=== PATIENT | male | born 1975 | race Two or more races ===

== ENCOUNTER 2024-06-17 09:20 | Outpatient (AMB) | payer MEDICAID, SELFPAY ==
--- NOTE | 2024-06-17 09:20 | ACNOTE_ITS ---
Vital Signs 06/17/24 09:31 Height 1.52 m Height Method Stated Weight 94.404 kg Weight Measurement Method Standing Scale BMI 40.8 BP 112/78 Blood Pressure Source Automatic Cuff Blood Pressure Location Left Upper Arm Position Sitting Respiration 19 Pulse 69 Pulse Source Monitor Temp 97.9 F Temp Source Oral Pulse Oximetry (%) 96 Oxygen Delivery Method Room Air Allergies/Meds Allergies & Medications Allergies No Known Allergies Allergy (Verified 06/24/24 15:20) Medication Reconciliation terbinafine HCl 1 % topical cream (Antifungal (terbinafine)) 1 applic topical BID #30 grams 08/08/23 [Rx Confirmed 02/01/24] clotrimazole 1 % topical cream 1 applic topical BID #15 grams 09/01/23 [Rx Confirmed 02/01/24] flash glucose scanning reader ([employer] Glenna 2 [place]) #1 ea 01/11/24 [Rx Con firmed 02/01/24] terbinafine HCl 1 % topical cream (Antifungal (terbinafine)) 1 applic topical BID 3 months #30 grams 02/01/24 [Rx] flash glucose sensor ([employer] Glenna 2 Sensor kit) #2 ea 03/18/24 [Rx Confirmed 03/18/24] atorvastatin 40 mg tablet 40 mg PO QHS #30 tabs 06/17/24 [Rx Confirmed 06/17/24] blood sugar diagnostic (Accu-Chek Guide test strips) #100 ea 06/17/24 [Rx Confirmed 06/17/24] blood-glucose meter (Accu-Chek Guide Me Glucose Meter) #1 ea 06/17/24 [Rx Confirmed 06/17/24] fenofibrate 150 mg capsule 150 mg PO QDAY 3 months #90 caps 06/17/24 [Rx Confirmed 06/17/24] lancets (Accu-Chek Fastclix Lancet Drum) #200 ea 06/17/24 [Rx Confirmed 06/17/24] metformin 500 mg tablet 500 mg PO BID 1 month #60 tabs 06/17/24 [Rx Confirmed 06/17/24] semaglutide 3 mg tablet (Rybelsus) 3 mg PO QDAY 30 days #30 tabs 06/17/24 [Rx Confirmed 06/17/24] dextromethorphan-guaifenesin 15 mg-200 mg/5 mL oral liquid 5 ml PO QID PRN cough #118.3 mL 06/24/24 [Rx Confirmed 06/24/24] MA Intake Visit Data Collection New Patient or Established: Established Patient (seen at [facility] within 3 years) Seen by Clinical Staff ONLY (RN/BALA): No Pain Present Currently: No Pain scale:: 0 Pain Scale Used: Patterson-Marr/Numerical PCP or OBGYN visit in last 3 months: Yes Do You Feel Safe at Home: Yes Authorities Contacted: N/A Smoking Status Smoking Status: Former smoker Immunization / Flu Flu Vaccine in the Last 12 Months: No Flu Vaccine Exclusion Criteria: No Exclusion Criteria Past Medical History Past Medical History NEUROLOGIC: Negative Neurological Disorders CARDIAC: Negative Cardiac Disorders or Congestive Heart Failure RESPIRATORY: Negative Chronic Obstructive Pulmonary Disease (COPD) GASTROINTESTINAL: Negative Gastrointestinal Disorders GENITOURINARY: Negative Genitourinary Disorders or Renal Disease ENDOCRINE: Positive Endocrine Disorders and Diabetes Mellitus Type 2; Negative Diabetes Mellitus Type 1 HEMATOLOGIC: Negative Blood Disorders OTHER HISTORY: Positive Chicken Pox; Negative Autoimmune Disease or Cancer Family History FAMILY HISTORY: Negative Family Psychiatric Problems, Family Respiratory Disorders, Family Cardiac Disorders, Family Gastrointestinal Problems, Family Cancer, Family Surgery or Family Anesthesia Reaction Social History SMOKING STATUS: Smoking status: Former smoker ALCOHOL: Alcohol Intake: Never HOUSING: Housing: Apartment LIVES WITH: Lives With: Significant Other Patient Portal Questionaires PHQ-9 PHQ-2 Over the last 2 weeks, how often have you been bothered by any of the following problems? 1. Little interest or pleasure in doing things: not at all PHQ-9 8. Moving or speaking so slowly that other people could have noticed? - Or the opposite - being so fidgety or restless that you have been moving around a lot more than usual: not at all Source: Developed by Drs. Con Aguilar, Krystal Isaacs, Chico Kenny and colleagues, with an educational mahogany from [employer]. Social History Living Situation History Housing: Apartment Housing Other:: Patient resides at home with significant other and child. Tobacco History Smoking Status: Former smoker Alcohol History Alcohol Intake: Never Domestic Abuse History Do You Feel Safe at Home: Yes Review of Systems Report any current symptoms Only answer those that you have currently: Past Medical History Past Medical History Have you ever been diagnosed with any of the following: Cardiology Problems Congestive Heart Failure: No Respiratory Problems Chronic Obstructive Pulmonary Disease (COPD): No Genital/Urinary Problems Renal Disease: No Endocrine Problems Diabetes Mellitus Type 1: No Diabetes Mellitus Type 2: Yes Other Problems Autoimmune Disease: No Chicken Pox: Yes Cancer: No History of Present Illness HPI Narrative 48-year-old man with past medical history of hyperlipidemia, diabetes mellitus type 2 [id number] who came to [facility] for follow-up. Patient stated that he has been feeling well that he is taking his medications as prescribed but today he complains of bilateral foot dryness and itchiness at the level of the heel, plantar area and interdigital area. Denied dizziness, chest pain, palpitations, headache, blurry vision or any other associated symptoms different than mentioned above. 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 Upon my assessment most likely symptoms of patient foot dryness and itchiness are most likely consistent with athlete's foot for which terbinafine 250 mg p.o. daily for 3 months was prescribed as well as terbinafine cream 1% to apply on affected area 3 times per day for at least 1 month. Patient stated that still has medications and not require any refills at this time. Patient was counseled about healthy lifestyle modifications consistent with healthy diet with low and consistent carbs as well as low-fat foods and at least 30 minutes of exercise daily to decrease cardiovascular risk and improve insulin resistance. Follow-up in 2 weeks with labs A1c lipid panel and CMP. 02/01/2024: 48-year-old man with past medical history of hyperlipidemia, diabetes mellitus type 2 [id number] who came today to the [facility] for follow-up with labs. Patient stated that has been feeling well otherwise he said that was not able to do labs for this visit due to work. 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 He stated that continued to present to dryness and itchiness of bilateral lower extremities at the level of the foot and that even has become worse ordered at that he denied any other active complaints like chest pain, palpitations, dizziness, hypoglycemia's or hyperglycemia and that he regularly check his blood glucose at home and has been between 80?120s. We will refill terbinafine medications for athlete's foot and we will follow-up via telehealth with lab results. 03/18/2024: 48-year-old man with past medical history of hyperlipidemia, diabetes mellitus type 2 [id number] who came today to the [facility] for follow-up with labs. Patient stated that lately he has been presenting dizziness most likely when he eats otherwise he denied any other complaints at this moment. Patient stated that at home checks his glucose FSG around 150-130s. Today at the office FSG 213 4 labs showed glucose 117, A1c 7.2=> 7.4, creatinine within normal limits, lipid panel triglycerides 477, HDL 41, LDL 112, total cholesterol 236, we counseled the patient about healthy lifestyle modification and low-carb diet and importance of medication adherence for diabetes we will add gemfibrozil 175 mg p.o. daily and continue atorvastatin 40 mg p.o. at night as well as week at Rybelsus treatment was p.o. daily to achieve better glycemic control and follow-up with labs in 3 to 6 months. 06/17/2024: 48-year-old man with past medical history of history of hyperlipidemia, diabetes mellitus type 2 [id number] who came today to the [facility] for follow-up. Patient denied any acute complaints at this moment he stated he been feeling well only stated that apparently 2 weeks ago was presenting some reflux symptoms and gastritis. Denied checking his blood glucose at home today though he is not have a glucometer and he stated that he forgot to take labs for today. Medications were refilled atorvastatin, Rybelsus, metformin and Accu-Chek glucometer was ordered as well as omeprazole 40 mg p.o. daily for 3 weeks. Follow-up via telehealth with lab results Review of Systems Review of Systems Systems Reviewed: All systems reviewed, normal except as documented Objective/Exam Narrative Physical exam: General: No acute distress, well appearing, alert, interactive. HEENT: NC/AT, PERRL, EOMI, Good conjugate gaze, moist mucous membranes, oropharynx clear. Neck: Supple, No masses, No adenopathy, carotid pulse 2+ bilaterally without bruits, No JVD, normal range of motion. Chest: Symmetrical, atraumatic, and with equal expansion , Nontender on palpation no deformity and no crepitus. CVS: S1 and S2 present, Regular rate and rhythm, No murmurs, rubs or gallops perceived during auscultation. Lungs: Normal respiratory effort, CTAB, no wheezing, rhonchi or rales perceived during auscultation, No intercostal or subcostal retraction. Abdomen : Soft, no tenderness to palpation, no guarding ,no rebound, +BS, no organomegaly. Extremities: No edema, warm well perfused, normal tone and ROM, strength and sensation intact, cap refill less than 2, +2 dp equal bilaterally, able to move all 4 extremities spontaneously. Skin: desquamation on heel area as well interdigital area, bilateral toes onychomycosis Neuro: AOx4,reflex symmetric and sensation normal, no focal neurologic deficits noted, GCS 15 Psych: Appropriate mood and affect. Assessment & Plan Diagnosis / Problem List (1) Diabetes mellitus type 2, noninsulin dependent: Status: Acute Assessment & Plan: Patient A1c last 7.4 we encouraged the patient to do healthy lifestyle modification, at least 150 minutes of exercise per week and have low-carb diet. A1c, lipid panel CBC CMP and microalbuminuria protein creatinine ratio was ordered Plan: Continue Rybelsus 3 mg p.o. daily and continue metformin 500 mg p.o. twice daily and follow-up with labs (2) Hyperlipidemia: Status: Acute Qualifiers: Hyperlipidemia type: mixed hyperlipidemia Qualified Code(s): E78.2 - Mixed hyperlipidemia Assessment & Plan: Patient has past medical history of mixed hyperlipidemia last total cholesterol increased from 204 to 236, triglycerides increased from 130 to 477, LDL and HDL remain stable continue fenofibrate 150 mg p.o. daily and continue atorvastatin mg 40 p.o. q. night Plan: Continue fenofibrate 150 open p.o. daily and continue atorvastatin 40 mg p.o. q. night follow-up with labs (3) GERD (gastroesophageal reflux disease): Status: Acute Qualifiers: Esophagitis presence: esophagitis presence not specified Qualified Code(s): K21.9 - Gastro-esophageal reflux disease without esophagitis Assessment & Plan: Patient endorse that since last 2 weeks has been presenting some burning sensation on the epigastric area as well as sensation of acid in his throat. Plan: Omeprazole 40 mg p.o. daily for 4 weeks was ordered recommendation for treatment to avoid spicy foods, sweets, coffee and processed food Orders: Orders Ambulatory Hemoglobin A1C 06/17/24 E11.9 - Type 2 diabetes mellitus without complications Microalbumin, Ur Rnd w Creat 06/17/24 E11.9 - Type 2 diabetes mellitus without complications Additional Assessment Patient discussed with my attending Dr Jeff Ortega MD PGY-3 Disclaimer: Despite multiple revisions, due to the dictation software being used, the document bellow may not be free of grammatical errors including phonetic/typographic errors. However, this does not deter from our commitment to providing health care in the patient's best interest in mind. Attending note: I, Hola Aguilar MD, attest that I was physically present for the zayas portions of the service and evaluated the patient with the resident and I reviewed and discussed the case with the resident and agree with the resident's findings and plans of care as documented above. Follow-up visit. Diabetes self- care reviewed including diet, exercise, footcare, eye care. No low available today for review. Medications renewed today, also order for glucometer. Patient reporting some reflux symptoms, will order PPI for 3 weeks. Follow-up with telehealth visit once lab results available for review. Hola Aguilar MD Physician Billing Established Patient Established Patient: E/M Level 3-CPT 99616 Office Procedures [facility] Level of Care Nursing/Assessment Patient Status: Established Patient Nursing Assessment/Reassessment: Medication Reconciliation, Update PMH in EMR and Vital Signs Coordination of Care: Complex Care and Chronic Disease 1-5, Consent,records obtained, informed consent, Lab and Imaging orders and Staff clarify orders Established Patient Charge Established Patient Point Assignment: 85 Established Patient Point Charge: Level 3 (62-115)
[2024-06-17 09:31] VITALS: BP 112/78; PULSE 69; RESP 19; TEMP 36.6; O2SAT 96; BMI 40.8
== END 2024-06-17 09:51 | disposition home or self-care (01) ==
LOC: HODAHC 09:20
PROVIDERS: PCP Student in an Organized Health Care Education/Training Program; Referring Provider Student in an Organized Health Care Education/Training Program; Supervising Provider Internal Medicine; Visit Provider Student in an Organized Health Care Education/Training Program
DX: E11.9 Type 2 diabetes mellitus without complications (principal); K21.9 Gastro-esophageal reflux disease without esophagitis; E78.2 Mixed hyperlipidemia; Z79.84 Long term (current) use of oral hypoglycemic drugs
CPT/HCPCS: 99213; G0463

== ENCOUNTER 2024-06-24 15:20 | Outpatient (AMB) | payer MEDICAID, SELFPAY ==
--- NOTE | 2024-06-24 15:19 | PD.RESCLINIC ---
Allergies/Meds Allergies & Medications Allergies No Known Allergies Allergy (Verified 06/24/24 15:20) Medication Reconciliation terbinafine HCl 1 % topical cream (Antifungal (terbinafine)) 1 applic topical BID #30 grams 08/08/23 [Rx Confirmed 02/01/24] clotrimazole 1 % topical cream 1 applic topical BID #15 grams 09/01/23 [Rx Confirmed 02/01/24] flash glucose scanning reader (OTI [employer] Glenna 2 [place]) #1 ea 01/11/24 [Rx Confirmed 02/01/24] terbinafine HCl 1 % topical cream (Antifungal (terbinafine)) 1 applic topical BID 3 months #30 grams 02/01/24 [Rx] flash glucose sensor ([employer] Glenna 2 Sensor kit) #2 ea 03/18/24 [Rx Confirmed 03/18/24] atorvastatin 40 mg tablet 40 mg PO QHS #30 tabs 06/17/24 [Rx Confirmed 06/17/24] blood sugar diagnostic (Accu-Chek Guide test strips) #100 ea 06/17/24 [Rx Confirmed 06/17/24] blood-glucose meter (Accu-Chek Guide Me Glucose Meter) #1 ea 06/17/24 [Rx Confirmed 06/17/24] fenofibrate 150 mg capsule 150 mg PO QDAY 3 months #90 caps 06/17/24 [Rx Confirmed 06/17/24] lancets (Accu-Chek Fastclix Lancet Drum) #200 ea 06/17/24 [Rx Confirmed 06/17/24] metformin 500 mg tablet 500 mg PO BID 1 month #60 tabs 06/17/24 [Rx Confirmed 06/17/24] semaglutide 3 mg tablet (Rybelsus) 3 mg PO QDAY 30 days #30 tabs 06/17/24 [Rx Confirmed 06/17/24] dextromethorphan-guaifenesin 15 mg-200 mg/5 mL oral liquid 5 ml PO QID PRN cough #118.3 mL 06/24/24 [Rx Confirmed 06/24/24] MA Intake Visit Data Collection New Patient or Established: Established Patient (seen at [facility] within 3 years) Seen by Clinical Staff ONLY (RN/MA): No Pain Present Currently: No Pain scale:: 0 Pain Scale Used: Patterson-Marr/Numerical PCP or OBGYN visit in last 3 months: Yes Do You Feel Safe at Home: Yes Authorities Contacted: N/A Smoking Status Smoking Status: Former smoker For Televisit only Telemed Video/Phone Visit: Yes Verbal consent obtained for Telemed visit?: Yes Verbal Consent witness name: ISAMAR Telemed Video/Phone visit w/Clinical Staff: 21-30 min Immunization / Flu Flu Vaccine in the Last 12 Months: No Flu Vaccine Exclusion Criteria: No Exclusion Criteria Past Medical History Past Medical History NEUROLOGIC: Negative Neurological Disorders CARDIAC: Negative Cardiac Disorders or Congestive Heart Failure RESPIRATORY: Negative Chronic Obstructive Pulmonary Disease (COPD) GASTROINTESTINAL: Negative Gastrointestinal Disorders GENITOURINARY: Negative Genitourinary Disorders or Renal Disease ENDOCRINE: Positive Endocrine Disorders and Diabetes Mellitus Type 2; Negative Diabetes Mellitus Type 1 HEMATOLOGIC: Negative Blood Disorders OTHER HISTORY: Positive Chicken Pox; Negative Autoimmune Disease or Cancer Family History FAMILY HISTORY: Negative Family Psychiatric Problems, Family Respiratory Disorders, Family Cardiac Disorders, Family Gastrointestinal Problems, Family Cancer, Family Surgery or Family Anesthesia Reaction Social History SMOKING STATUS: Smoking status: Former smoker ALCOHOL: Alcohol Intake: Never HOUSING: Housing: Apartment LIVES WITH: Lives With: Significant Other Patient Portal Questionaires PHQ-9 PHQ-2 Over the last 2 weeks, how often have you been bothered by any of the following problems? 1. Little interest or pleasure in doing things: not at all PHQ-9 8. Moving or speaking so slowly that other people could have noticed? - Or the opposite - being so fidgety or restless that you have been moving around a lot more than usual: not at all Source: Developed by Drs. Con Aguilar, Krystal Isaacs, Chico Kenny and colleagues, with an educational mahogany from [employer]. Social History Living Situation History Housing: Apartment Housing Other:: Patient resides at home with significant other and child. Tobacco History Smoking Status: Former smoker Alcohol History Alcohol Intake: Never Domestic Abuse History Do You Feel Safe at Home: Yes Review of Systems Report any current symptoms Only answer those that you have currently: Past Medical History Past Medical History Have you ever been diagnosed with any of the following: Cardiology Problems Congestive Heart Failure: No Respiratory Problems Chronic Obstructive Pulmonary Disease (COPD): No Genital/Urinary Problems Renal Disease: No Endocrine Problems Diabetes Mellitus Type 1: No Diabetes Mellitus Type 2: Yes Other Problems Autoimmune Disease: No Chicken Pox: Yes Cancer: No History of Present Illness HPI Narrative 48-year-old man with past medical history of hyperlipidemia, diabetes mellitus type 2 [id number] who came to [facility] for follow-up. Patient stated that he has been feeling well that he is taking his medications as prescribed but today he complains of bilateral foot dryness and itchiness at the level of the heel, plantar area and interdigital area. Denied dizziness, chest pain, palpitations, headache, blurry vision or any other associated symptoms different than mentioned above. 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 Upon my assessment most likely symptoms of patient foot dryness and itchiness are most likely consistent with athlete's foot for which terbinafine 250 mg p.o. daily for 3 months was prescribed as well as terbinafine cream 1% to apply on affected area 3 times per day for at least 1 month. Patient stated that still has medications and not require any refills at this time. Patient was counseled about healthy lifestyle modifications consistent with healthy diet with low and consistent carbs as well as low-fat foods and at least 30 minutes of exercise daily to decrease cardiovascular risk and improve insulin resistance. Follow-up in 2 weeks with labs A1c lipid panel and CMP. 02/01/2024: 48-year-old man with past medical history of hyperlipidemia, diabetes mellitus type 2 [id number] who came today to the [facility] for follow-up with labs. Patient stated that has been feeling well otherwise he said that was not able to do labs for this visit due to work. 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 He stated that continued to present to dryness and itchiness of bilateral lower extremities at the level of the foot and that even has become worse ordered at that he denied any other active complaints like chest pain, palpitations, dizziness, hypoglycemia's or hyperglycemia and that he regularly check his blood glucose at home and has been between 80?120s. We will refill terbinafine medications for athlete's foot and we will follow-up via telehealth with lab results. 03/18/2024: 48-year-old man with past medical history of hyperlipidemia, diabetes mellitus type 2 [id number] who came today to the [facility] for follow-up with labs. Patient stated that lately he has been presenting dizziness most likely when he eats otherwise he denied any other complaints at this moment. Patient stated that at home checks his glucose FSG around 150-130s. Today at the office FSG 213 4 labs showed glucose 117, A1c 7.2=> 7.4, creatinine within normal limits, lipid panel triglycerides 477, HDL 41, LDL 112, total cholesterol 236, we counseled the patient about healthy lifestyle modification and low-carb diet and importance of medication adherence for diabetes we will add gemfibrozil 175 mg p.o. daily and continue atorvastatin 40 mg p.o. at night as well as week at Rybelsus treatment was p.o. daily to achieve better glycemic control and follow-up with labs in 3 to 6 months. 06/17/2024: 48-year-old man with past medical history of history of hyperlipidemia, diabetes mellitus type 2 [id number] who came today to the [facility] for follow-up. Patient denied any acute complaints at this moment he stated he been feeling well only stated that apparently 2 weeks ago was presenting some reflux symptoms and gastritis. Denied checking his blood glucose at home today though he is not have a glucometer and he stated that he forgot to take labs for today. Medications were refilled atorvastatin, Rybelsus, metformin and Accu-Chek glucometer was ordered as well as omeprazole 40 mg p.o. daily for 3 weeks. Follow-up via telehealth with lab results 06/24/2024. Patient is here for telehealth follow up. His labs were done and for the most part everything seems within normal limits. Fasting glucose was slightly elevated at 118 and his hemoglobin A1c seems to be stable at 7.4. Albumin creatinine ratio was 79 which is high. Patient's cholesterol was all within normal limits and his liver function panel was also within normal limits. Over the phone patient did not remember his medications but he was 5 minutes away from home after which asked him to call me back to tell me what medications he was taking. 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 He otherwise states that he has been doing okay except for a cough that has lasted for about 2 weeks. He states then versus granddaughter had cough and every other member of the family has also had cough and he is the last 1 to have residual symptoms. Patient kept coughing constantly throughout the phone conversation and he had to take several moments to pause the conversation to cough. Patient was advised to take Robitussin to help with the cough. He denies any chest pain or palpitations and he does produce occasional greenish nasal discharge but denies any fevers or chills. Patient was advised to milk pickup truck driver the Robitussin and the Rybelsus from his pharmacy and to continue with his current regimen of medications for his diabetes. He will follow-up in 5 to 6 weeks after the holidays. Review of Systems Review of Systems Systems Reviewed: All systems reviewed, normal except as documented Objective/Exam Narrative Physical exam: This was a telehealth visit. Assessment & Plan Diagnosis / Problem List (1) Diabetes mellitus type 2, noninsulin dependent: Status: Acute Assessment & Plan: Patient A1c last 7.4 we encouraged the patient to do healthy lifestyle modification, at least 150 minutes of exercise per week and have low-carb diet. A1c, lipid panel CBC CMP and microalbuminuria protein creatinine ratio was ordered Plan: Continue Rybelsus 3 mg p.o. daily and continue metformin 500 mg p.o. twice daily and follow-up with labs (2) Hyperlipidemia: Status: Acute Qualifiers: Hyperlipidemia type: mixed hyperlipidemia Qualified Code(s): E78.2 - Mixed hyperlipidemia Assessment & Plan: Patient has past medical history of mixed hyperlipidemia last total cholesterol increased from 204 to 236, triglycerides increased from 130 to 477, LDL and HDL remain stable continue fenofibrate 150 mg p.o. daily and continue atorvastatin mg 40 p.o. q. night Plan: Continue fenofibrate 150 open p.o. daily and continue atorvastatin 40 mg p.o. q. night follow-up with labs (3) GERD (gastroesophageal reflux disease): Status: Acute Qualifiers: Esophagitis presence: esophagitis presence not specified Qualified Code(s): K21.9 - Gastro-esophageal reflux disease without esophagitis Assessment & Plan: Patient endorse that since last 2 weeks has been presenting some burning sensation on the epigastric area as well as sensation of acid in his throat. Plan: Omeprazole 40 mg p.o. daily for 4 weeks was ordered recommendation for treatment to avoid spicy foods, sweets, coffee and processed food (4) Upper respiratory infection: Status: Acute Qualifiers: URI type: unspecified viral URI Qualified Code(s): J06.9 - Acute upper respiratory infection, unspecified Assessment & Plan: Patient has been struggling with a upper respiratory tract infection with persistent cough for the past 2 weeks. During the phone conversation he had to pause several times for severe coughing Plan: Prescribed [id number]-uos-gkivfmr Robitussin to help with the symptoms ER precautions Follow-up with symptoms Additional Assessment Patient discussed with my attending Dr Jeff Deluca MD PGY-3 Disclaimer: Despite multiple revisions, due to the dictation software being used, the document bellow may not be free of grammatical errors including phonetic/typographic errors. However, this does not deter from our commitment to providing health care in the patient's best interest in mind. Attending note: I, Hola Aguilar MD, attest that I was physically present for the zayas portions of the service completed via telehealth, and I reviewed and discussed the case with the resident and agree with the resident's plans of care as documented above. Diabetes self-care reviewed including diet, exercise, footcare, eye care. No change to medication regimen today. Last hemoglobin A1c of 7.4. Tolerating fenofibrate and atorvastatin. We will add a PPI for symptoms of GERD. Patient with symptoms of URI now mainly with persistent cough for past 2 weeks, no red flags, treat conservatively with OTC meds at this time. Patient may test for COVID and influenza as outpatient but past timeframe for treatment with Paxlovid or Tamiflu if is positive. 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
== END 2024-06-24 15:50 | disposition home or self-care (01) ==
LOC: HODAHC 15:20
PROVIDERS: PCP Student in an Organized Health Care Education/Training Program; Referring Provider Student in an Organized Health Care Education/Training Program; Supervising Provider Internal Medicine; Visit Provider Student in an Organized Health Care Education/Training Program
DX: J06.9 Acute upper respiratory infection, unspecified (principal); E11.9 Type 2 diabetes mellitus without complications; E78.5 Hyperlipidemia, unspecified; K21.9 Gastro-esophageal reflux disease without esophagitis
CPT/HCPCS: 99212; 99213; G0463

== ENCOUNTER 2024-10-03 09:43 | Outpatient (AMB) | payer MEDICAID, SELFPAY ==
--- NOTE | 2024-10-03 09:50 | ACNOTE_ITS ---
Vital Signs 10/03/24 09:52 Height 1.52 m Height Method Stated Weight 93.61 kg Weight Measurement Method Standing Scale BMI 40.5 BP 108/75 Blood Pressure Source Automatic Cuff Blood Pressure Location Left Upper Arm Position Sitting Respiration 18 Pulse 87 Pulse Source Monitor Temp 96.7 F L Temp Source Temporal Artery Scan Pulse Oximetry (%) 95 Oxygen Delivery Method Room Air Allergies/Meds Allergies & Medications Allergies No Known Allergies Allergy (Verified 10/03/24 10:01) Medication Reconciliation terbinafine HCl 1 % topical cream (Antifungal (terbinafine)) 1 applic topical BID #30 grams 08/08/23 [Rx Confirmed 10/03/24] clotrimazole 1 % topical cream 1 applic topical BID #15 grams 09/01/23 [Rx Confirmed 10/03/24] flash glucose scanning reader ([employer] system [employer] Glenna 2 [place]) #1 ea 01/11/24 [Rx Confirmed 10/03/24] terbinafine HCl 1 % topical cream (Antifungal (terbinafine)) 1 applic topical BID 3 months #30 grams 02/01/24 [Rx Confirmed 10/03/24] flash glucose sensor ([employer] Glenna 2 Sensor kit) #2 ea 03/18/24 [Rx Confirmed 10/03/24] blood sugar diagnostic (Accu-Chek Guide test strips) #100 ea 06/17/24 [Rx Confirmed 10/03/24] blood-glucose meter (Accu-Chek Guide Me Glucose Meter) #1 ea 06/17/24 [Rx Confirmed 10/03/24] lancets (Accu-Chek Fastclix Lancet Drum) #200 ea 06/17/24 [Rx Confirmed 10/03/24] dextromethorphan-guaifenesin 15 mg-200 mg/5 mL oral liquid 5 ml PO QID PRN cough #118.3 mL 06/24/24 [Rx Confirmed 10/03/24] atorvastatin 40 mg tablet 40 mg PO QHS #30 tabs 10/03/24 [Rx] dapagliflozin propanediol 10 mg tablet (Farxiga) 10 mg PO QAM #30 tabs 10/03/24 [Rx] fenofibrate 150 mg capsule 150 mg PO QDAY 3 months #90 caps 10/03/24 [Rx] metformin 1,000 mg tablet 1,000 mg PO BIDWMEAL #60 tabs 10/03/24 [Rx] semaglutide 3 mg tablet (Rybelsus) 3 mg PO QDAY 30 days #30 tabs 10/03/24 [Rx] MA Intake Visit Data Collection New Patient or Established: Established Patient (seen at [facility] within 3 years) Seen by Clinical Staff ONLY (RN/MA): No Pain Present Currently: No Pain scale:: 0 Pain Scale Used: Patterson-Marr/Numerical Cover Maker Required: Yes PCP or OBGYN visit in last 3 months: No Hx Now: No Do You Feel Safe at Home: Yes Authorities Contacted: N/A Smoking Status Smoking Status: Former smoker Immunization / Flu Flu Vaccine in the Last 12 Months: No Flu Vaccine Exclusion Criteria: No Exclusion Criteria Past Medical History Past Medical History NEUROLOGIC: Negative Neurological Disorders CARDIAC: Negative Cardiac Disorders or Congestive Heart Failure RESPIRATORY: Negative Chronic Obstructive Pulmonary Disease (COPD) GASTROINTESTINAL: Negative Gastrointestinal Disorders GENITOURINARY: Negative Genitourinary Disorders or Renal Disease ENDOCRINE: Positive Endocrine Disorders and Diabetes Mellitus Type 2; Negative Diabetes Mellitus Type 1 HEMATOLOGIC: Negative Blood Disorders OTHER HISTORY: Positive Chicken Pox; Negative Autoimmune Disease or Cancer Family History FAMILY HISTORY: Negative Family Psychiatric Problems, Family Respiratory Disorders, Family Cardiac Disorders, Family Gastrointestinal Problems, Family Cancer, Family Surgery or Family Anesthesia Reaction Social History SMOKING STATUS: Smoking status: Former smoker ALCOHOL: Alcohol Intake: Never HOUSING: Housing: Apartment LIVES WITH: Lives With: Significant Other Patient Portal Questionaires PHQ-9 PHQ-2 Over the last 2 weeks, how often have you been bothered by any of the following problems? 1. Little interest or pleasure in doing things: not at all PHQ-9 8. Moving or speaking so slowly that other people could have noticed? - Or the opposite - being so fidgety or restless that you have been moving around a lot more than usual: not at all Source: Developed by Drs. Con Aguilar, Krystal Isaacs, Chico Kenny and colleagues, with an educational mahogany from [employer]. Social History Living Situation History Housing: Apartment Housing Other:: Patient resides at home with significant other and child. Tobacco History Smoking Status: Former smoker Alcohol History Alcohol Intake: Never Domestic Abuse History Do You Feel Safe at Home: Yes Review of Systems Report any current symptoms Only answer those that you have currently: Past Medical History Past Medical History Have you ever been diagnosed with any of the following: Cardiology Problems Congestive Heart Failure: No Respiratory Problems Chronic Obstructive Pulmonary Disease (COPD): No Genital/Urinary Problems Renal Disease: No Endocrine Problems Diabetes Mellitus Type 1: No Diabetes Mellitus Type 2: Yes Other Problems Autoimmune Disease: No Chicken Pox: Yes Cancer: No History of Present Illness HPI Narrative 48-year-old man with past medical history of hyperlipidemia, diabetes mellitus type 2 [id number] who came to [facility] for follow-up. Patient stated that he has been feeling well that he is taking his medications as prescribed but he did run out of his cholesterol medication and has only been taking his Rybelsus and metformin. Patient also states he has been checking his sugars at home every to 3 days and running between 80s to 120s. Patient is otherwise feeling well and would like to check his sugar today during office visit. Patient denying any chest pain, shortness of breath, nausea, vomiting, fever, chills, abdominal pain, or lower extremity swelling. Objective/Exam Narrative Physical exam: General: No acute distress, well appearing, alert, interactive. CVS: S1 and S2 present, Regular rate and rhythm, No murmurs, rubs or gallops perceived during auscultation. Lungs: Normal respiratory effort, CTAB, no wheezing, rhonchi or rales perceived during auscultation, No intercostal or subcostal retraction. Abdomen : Soft, no tenderness to palpation, no guarding ,no rebound, +BS, no organomegaly. Extremities: No edema Psych: Appropriate mood and affect. Assessment & Plan Diagnosis / Problem List (1) Diabetes mellitus type 2, noninsulin dependent: Status: Acute Assessment & Plan: Patient with last A1c at 7.4 in June 2024. Per patient sugars run in the 80s to 120s at home. Today fasting patient had a sugar of 145 in office. Patient currently on Rybelsus and metformin 500. Without any side effects. Last albumin creatinine ratio was elevated Plan: Patient will continue on Rybelsus Patient's metformin will be increased from 500 up to 1000 twice daily Patient asked to start glucose journal. Patient started on Farxiga 10 mg Patient to get A1c and will follow-up again in 2 weeks. (2) Fatigue: Status: Acute Qualifiers: Fatigue type: unspecified Qualified Code(s): R53.83 - Other fatigue Assessment & Plan: Patient had TSH in February of 8.07 Patient still complaining of slight fatigue and endorses some snoring at nighttime per Plan: Will recheck TSH if elevated will start patient on levothyroxine Will consider sleep study follow-up if TSH within normal limits or fatigue continues after starting levothyroxine (3) Hyperlipidemia: Status: Acute Qualifiers: Hyperlipidemia type: mixed hyperlipidemia Qualified Code(s): E78.2 - Mixed hyperlipidemia Assessment & Plan: Patient on atorvastatin 40 and has ran out for a few days Patient was on fenofibrate which has been refilled Plan: Will refill medication and repeat lipid panel Plan Patient to follow-up in 2 weeks with labs A1c, TSH, and lipid panel. Orders: Orders Ambulatory Hemoglobin A1C Today E11.9 - Type 2 diabetes mellitus without complications Microalbumin, Ur Rnd w Creat Today E11.9 - Type 2 diabetes mellitus without complications Thyroid Stimulating Hormone Today R53.83 - Other fatigue Lipid Panel Today E11.9 - Type 2 diabetes mellitus without complications, E78.1 - Pure hyperglyceridemia, E78.2 - Mixed hyperlipidemia Office Procedures [facility] Level of Care Nursing/Assessment Patient Status: Established Patient Nursing Assessment/Reassessment: Medication Reconciliation, Update PMH in EMR and Vital Signs Coordination of Care: Complex Care and Chronic Disease 1-5, Consent,records obtained, informed consent, Education Simp Pt/Fam, Lab and Imaging orders and Staff clarify orders Established Patient Charge Established Patient Point Assignment: 100 Established Patient Point Charge: EP Level 3 (80-115)
[2024-10-03 09:52] VITALS: BP 108/75; PULSE 87; RESP 18; TEMP 35.9; O2SAT 95; BMI 40.5
== END 2024-10-03 10:40 | disposition home or self-care (01) ==
LOC: HODAHC 09:43
PROVIDERS: Supervising Provider Internal Medicine; Visit Provider Student in an Organized Health Care Education/Training Program
DX: E11.9 Type 2 diabetes mellitus without complications (principal); Z79.84 Long term (current) use of oral hypoglycemic drugs; E78.5 Hyperlipidemia, unspecified; R53.83 Other fatigue; Z76.0 Encounter for issue of repeat prescription
CPT/HCPCS: 99213; G0463

== ENCOUNTER 2024-10-18 14:33 | Outpatient (AMB) | payer MEDICAID, SELFPAY ==
--- NOTE | 2024-10-18 14:56 | PD.RESCLINIC ---
Vital Signs 10/18/24 14:57 Height 1.52 m Height Method Stated Weight 93.61 kg Weight Measurement Method Standing Scale BMI 40.5 BP 122/75 Blood Pressure Source Automatic Cuff Blood Pressure Location Left Upper Arm Position Sitting Respiration 14 Pulse 77 Pulse Source Monitor Temp 97.6 F Temp Source Oral Pulse Oximetry (%) 96 Oxygen Delivery Method Room Air Allergies/Meds Allergies & Medications Allergies No Known Allergies Allergy (Verified 10/18/24 14:58) Medication Reconciliation terbinafine HCl 1 % topical cream (Antifungal (terbinafine)) 1 applic topical BID #30 grams 08/08/23 [Rx Confirmed 10/18/24] clotrimazole 1 % topical cream 1 applic topical BID #15 grams 09/01/23 [Rx Confirmed 10/18/24] flash glucose scanning reader ([employer] Glenna 2 [place]) #1 ea 01/11/24 [Rx Confirmed 10/18/24] terbinafine HCl 1 % topical cream (Antifungal (terbinafine)) 1 applic topical BID 3 months #30 grams 02/01/24 [Rx Confirmed 10/18/24] flash glucose sensor ([employer] Glenna 2 Sensor kit) #2 ea 03/18/24 [Rx Confirmed 10/18/24] blood sugar diagnostic (Accu-Chek Guide test strips) #100 ea 06/17/24 [Rx Confirmed 10/18/24] blood-glucose meter (Accu-Chek Guide Me Glucose Meter) #1 ea 06/17/24 [Rx Confirmed 10/18/24] lancets (Accu-Chek Fastclix Lancet Drum) #200 ea 06/17/24 [Rx Confirmed 10/18/24] dextromethorphan-guaifenesin 15 mg-200 mg/5 mL oral liquid 5 ml PO QID PRN cough #118.3 mL 06/24/24 [Rx Confirmed 10/18/24] atorvastatin 40 mg tablet 40 mg PO QHS #30 tabs 10/03/24 [Rx Confirmed 10/18/24] dapagliflozin propanediol 10 mg tablet (Farxiga) 10 mg PO QAM #30 tabs 10/03/24 [Rx Confirmed 10/18/24] fenofibrate 150 mg capsule 150 mg PO QDAY 3 months #90 caps 03/13/25 [Rx Confirmed 10/18/24] metformin 1,000 mg tablet 1,000 mg PO BIDWMEAL #60 tabs 10/03/24 [Rx Confirmed 10/18/24] semaglutide 3 mg tablet (Rybelsus) 3 mg PO QDAY 30 days #30 tabs 10/03/24 [Rx Confirmed 10/18/24] artificial tears(hypromellose) 0.3 % eye drops 1 drp Both eyes Q12H PRN dry eyes #30 mL 10/18/24 [Rx] levothyroxine 25 mcg capsule 25 mcg PO QDAY #30 caps 10/18/24 [Rx] MA Intake Visit Data Collection New Patient or Established: Established Patient (seen at [facility] within 3 years) Seen by Clinical Staff ONLY (RN/BALA): No Pain Present Currently: No Pain scale:: 0 Pain Scale Used: Patterson-Marr/[employer] Required: No PCP or OBGYN visit in last 3 months: Yes Date of Last PCP or OBGYN visit: 10/03/24 Hx Now: No Do You Feel Safe at Home: Yes Authorities Contacted: N/A Smoking Status Smoking Status: Former smoker Immunization / Flu Flu Vaccine in the Last 12 Months: No Flu Vaccine Exclusion Criteria: No Exclusion Criteria Past Medical History Past Medical History NEUROLOGIC: Negative Neurological Disorders CARDIAC: Negative Cardiac Disorders or Congestive Heart Failure RESPIRATORY: Negative Chronic Obstructive Pulmonary Disease (COPD) GASTROINTESTINAL: Negative Gastrointestinal Disorders GENITOURINARY: Negative Genitourinary Disorders or Renal Disease ENDOCRINE: Positive Endocrine Disorders and Diabetes Mellitus Type 2; Negative Diabetes Mellitus Type 1 HEMATOLOGIC: Negative Blood Disorders OTHER HISTORY: Positive Chicken Pox; Negative Autoimmune Disease or Cancer Family History FAMILY HISTORY: Negative Family Psychiatric Problems, Family Respiratory Disorders, Family Cardiac Disorders, Family Gastrointestinal Problems, Family Cancer, Family Surgery or Family Anesthesia Reaction Social History SMOKING STATUS: Smoking status: Former smoker ALCOHOL: Alcohol Intake: Never HOUSING: Housing: Apartment LIVES WITH: Lives With: Significant Other Patient Portal Questionaires PHQ-9 PHQ-2 Over the last 2 weeks, how often have you been bothered by any of the following problems? 1. Little interest or pleasure in doing things: not at all 2. Feeling down, depressed, or hopeless: not at all Total score: 0 PHQ-9 3. Trouble falling or staying asleep, or sleeping too much: Not at all 4. Feeling tired or having little energy: Not at all 5. Poor appetite or overeating: Not at all 6. Feeling bad about yourself - or that you are a failure or have let yourself or your family down: Not at all 7. Trouble concentrating on things, such as reading the newspaper or watching television: Not at all 8. Moving or speaking so slowly that other people could have noticed? - Or the opposite - being so fidgety or restless that you have been moving around a lot more than usual: not at all 9. Thoughts that you would be better off or of hurting yourself in some way: Not at all Total score: 0 Source: Developed by Drs. Con Aguilar, Krystal Isaacs, Chico Kenny and colleagues, with an educational mahogany from [employer]. Depression screen completed yes Social History Living Situation History Housing: Apartment Housing Other:: Patient resides at home with significant other and child. Tobacco History Smoking Status: Former smoker Alcohol History Alcohol Intake: Never Domestic Abuse History Do You Feel Safe at Home: Yes Review of Systems Report any current symptoms Only answer those that you have currently: Past Medical History Past Medical History Have you ever been diagnosed with any of the following: Cardiology Problems Congestive Heart Failure: No Respiratory Problems Chronic Obstructive Pulmonary Disease (COPD): No Genital/Urinary Problems Renal Disease: No Endocrine Problems Diabetes Mellitus Type 1: No Diabetes Mellitus Type 2: Yes Other Problems Autoimmune Disease: No Chicken Pox: Yes Cancer: No History of Present Illness HPI Narrative 48-year-old man with past medical history of hyperlipidemia, diabetes mellitus type 2 [id number] who came to [facility] follow-up. Patient stated that he has been feeling well that he is taking his medications as prescribed but he did run out of his cholesterol medication and has only been taking his Rybelsus and metformin. Patient also states he has been checking his sugars at home every to 3 days and running between 80s to 120s. Patient is otherwise feeling well and would like to check his sugar today during office visit. Patient denying any chest pain, shortness of breath, nausea, vomiting, fever, chills, abdominal pain, or lower extremity swelling. 10/18/24: Patient is here for dry eyes. Patient stated it started a few week ago. Patient stated this happens frequently during this time of year. he relates to sesosonal allergies. Patient takes antihistamine OTC medications. Assessment & Plan Diagnosis / Problem List (1) Diabetes mellitus type 2, noninsulin dependent: Status: Acute Assessment & Plan: Patient with last A1c at 7.4 in June 2024. Per patient sugars run in the 80s to 120s at home. Today fasting patient had a sugar of 145 in office. Patient currently on Rybelsus and metformin 500. Without any side effects. Last albumin creatinine ratio was elevated Plan: Patient will continue on Rybelsus Patient's metformin will be increased from 500 up to 1000 twice daily Patient asked to start glucose journal. Patient started on Farxiga 10 mg Patient to get A1c and will follow-up again in 2 weeks. (2) Fatigue: Status: Acute Qualifiers: Fatigue type: unspecified Qualified Code(s): R53.83 - Other fatigue Assessment & Plan: Repeat TSH was elevated with decreased T4 Patient still complaining of slight fatigue and endorses some snoring at nighttime per Plan: -start levothyroxin 25mcg a day -f/u in6 weeks (3) Hyperlipidemia: Status: Acute Qualifiers: Hyperlipidemia type: mixed hyperlipidemia Qualified Code(s): E78.2 - Mixed hyperlipidemia Assessment & Plan: Patient on atorvastatin 40 and has ran out for a few days Patient was on fenofibrate which has been refilled Plan: Will refill medication and repeat lipid panel (4) Dry eyes: Status: Acute Plan: cont taking OTC antihistamines artifical tears sent to pharmacy Plan Patient to follow-up in 2 weeks with labs A1c, TSH, and lipid panel. Office Procedures [facility] Level of Care Nursing/Assessment Patient Status: Established Patient Nursing Assessment/Reassessment: Medication Reconciliation, Update PMH in EMR and Vital Signs Coordination of Care: Complex Care and Chronic Disease 1-5, Consent,records obtained, informed consent, Education Simp Pt/Fam, Results/Orders obtained and Staff clarify orders Established Patient Charge Established Patient Point Assignment: 90 Established Patient Point Charge: Level 3 (80-115)
[2024-10-18 14:57] VITALS: BP 122/75; PULSE 77; RESP 14; TEMP 36.4; O2SAT 96; BMI 40.5
== END 2024-10-18 15:04 | disposition home or self-care (01) ==
LOC: HODAHC 14:33
PROVIDERS: Supervising Provider Student in an Organized Health Care Education/Training Program; Visit Provider Student in an Organized Health Care Education/Training Program
DX: E11.9 Type 2 diabetes mellitus without complications (principal); Z79.84 Long term (current) use of oral hypoglycemic drugs; R53.83 Other fatigue; E78.2 Mixed hyperlipidemia; H04.123 Dry eye syndrome of bilateral lacrimal glands
CPT/HCPCS: 99213; G0463

== ENCOUNTER 2025-02-21 15:12 | Outpatient (AMB) | payer MEDICAID, SELFPAY ==
[2025-02-21 15:27] VITALS: BP 126/90; PULSE 92; RESP 18; TEMP 36.7; O2SAT 96; BMI 41.7
--- NOTE | 2025-02-21 15:27 | PD.RESCLINIC ---
Vital Signs 02/21/25 15:27 Height 1.52 m Height Method Stated Weight 96.332 kg Weight Measurement Method Standing Scale BMI 41.7 BP 126/90 H Blood Pressure Source Automatic Cuff Blood Pressure Location Left Upper Arm Position Sitting Respiration 18 Pulse 92 Pulse Source Monitor Temp 98.1 F Temp Source Oral Pulse Oximetry (%) 96 Oxygen Delivery Method Room Air Allergies/Meds Allergies & Medications Allergies No Known Allergies Allergy (Verified 02/21/25 15:28) Medication Reconciliation atorvastatin 40 mg tablet 40 mg PO QHS Hypeerlipidemia E78.5 #30 tabs 02/21/25 [Rx] blood sugar diagnostic (Accu-Chek Guide test strips) #100 ea 02/21/25 [Rx] blood-glucose meter (Accu-Chek Guide Me Glucose Meter) #1 ea 02/21/25 [Rx] lancets (Accu-Chek Fastclix Lancet Drum) #200 ea 02/21/25 [Rx] lisinopril 2.5 mg tablet 2.5 mg PO QDAY 30 days #30 tabs 02/21/25 [Rx] metformin 1,000 mg 24 hr tablet,extended release (gastric reten.) 1,000 mg PO BID diabetes mellitus type 2 1 month #60 tabs 02/21/25 [Rx] simethicone 80 mg chewable tablet (Gas Relief 80 (simethicone)) 80 mg PO TID PRN abdominal distention 1 month #90 tabs 02/21/25 [Rx] MA Intake Visit Data Collection New Patient or Established: Established Patient (seen at [facility] within 3 years) Seen by Clinical Staff ONLY (RN/MA): No Reason for Visit:: FOLLOW UP Pain Present Currently: No Pain scale:: 0 Pain Scale Used: PattersonYolandaMarr/Numerical [employer] Required: No PCP or OBGYN visit in last 3 months: Yes Hx Now: No Do You Feel Safe at Home: Yes Authorities Contacted: N/A Smoking Status Smoking Status: Former smoker Immunization / Flu Flu Vaccine in the Last 12 Months: Yes Flu Vaccine Exclusion Criteria: No Exclusion Criteria Past Medical History Past Medical History NEUROLOGIC: Negative Neurological Disorders CARDIAC: Negative Cardiac Disorders or Congestive Heart Failure RESPIRATORY: Negative Chronic Obstructive Pulmonary Disease (COPD) GASTROINTESTINAL: Negative Gastrointestinal Disorders GENITOURINARY: Negative Genitourinary Disorders or Renal Disease ENDOCRINE: Positive Endocrine Disorders and Diabetes Mellitus Type 2; Negative Diabetes Mellitus Type 1 HEMATOLOGIC: Negative Blood Disorders OTHER HISTORY: Positive Chicken Pox; Negative Autoimmune Disease or Cancer Family History FAMILY HISTORY: Negative Family Psychiatric Problems, Family Respiratory Disorders, Family Cardiac Disorders, Family Gastrointestinal Problems, Family Cancer, Family Surgery or Family Anesthesia Reaction Social History SMOKING STATUS: Smoking status: Former smoker ALCOHOL: Alcohol Intake: Never HOUSING: Housing: Apartment LIVES WITH: Lives With: Significant Other Patient Portal Questionaires PHQ-9 PHQ-2 Over the last 2 weeks, how often have you been bothered by any of the following problems? 1. Little interest or pleasure in doing things: not at all 2. Feeling down, depressed, or hopeless: not at all Total score: 0 PHQ-9 3. Trouble falling or staying asleep, or sleeping too much: Not at all 4. Feeling tired or having little energy: Not at all 5. Poor appetite or overeating: Not at all 6. Feeling bad about yourself - or that you are a failure or have let yourself or your family down: Not at all 7. Trouble concentrating on things, such as reading the newspaper or watching television: Not at all 8. Moving or speaking so slowly that other people could have noticed? - Or the opposite - being so fidgety or restless that you have been moving around a lot more than usual: not at all 9. Thoughts that you would be better off or of hurting yourself in some way: Not at all Total score: 0 Source: Developed by Drs. Con Aguilar, Krystal Isaacs, Chico Kenny and colleagues, with an educational mahogany from [employer]. Depression screen completed yes Social History Living Situation History Housing: Apartment Housing Other:: Patient resides at home with significant other and child. Tobacco History Smoking Status: Former smoker Alcohol History Alcohol Intake: Never Domestic Abuse History Do You Feel Safe at Home: Yes Review of Systems Report any current symptoms Only answer those that you have currently: Past Medical History Past Medical History Have you ever been diagnosed with any of the following: Cardiology Problems Congestive Heart Failure: No Respiratory Problems Chronic Obstructive Pulmonary Disease (COPD): No Genital/Urinary Problems Renal Disease: No Endocrine Problems Diabetes Mellitus Type 1: No Diabetes Mellitus Type 2: Yes Other Problems Autoimmune Disease: No Chicken Pox: Yes Cancer: No History of Present Illness HPI Narrative Patient is a 49 year old male with a past medical history of hyperlipidemia, Diabetes Mellitus Type 4-wkz-qinumip dependent, concern for hypothyroidism given elevated TSH last year (maybe medication non-adherent), and concern for history of herpes. 02/21/2025: Patient is returning to the office with chief complain of abdominal bloating. Patient stated this has been ongoing for several weeks. Patient feels early satiety after eating. Denied history of hernias, gastritis, or H.pyloir. Paitnet denied wegith loss. Paitnet denied melena. Denied past medical history of colon cancer and deneid family history as well. Single episosde of hematochezia. Referral to GI for colonoscopy/EGD. Simethicone 80 mg PO TID as needed. Patient also complaining penile vesicles near foreskin two weeks ago. Per patient history vesicles noted to be clear, uniform, and occasionally sharp electric pain noted. Currently lesions have note present. 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 Denied dysuria. Denied discharge. New sexual partner. Repeat test. Patient asked to return when lesions are active. Wear condoms during sexual intercourse. Patient will require PCR testing with active genital lesion & treatment if reoccurrence, advised to return when lesions are active Per chart review possible history of hypothyroidism. Patient was previously started on Levothyroxine. Patient denied taking medication. Repeat TSH and T4 with [facility]. Past medical history of do diabetes mellitus type 2, non insulin dependent with previous A1c of 7.4 (06/2024). Patient current medication Metformin 1000 mg BID-->Metformin ER 1000 mg BID , renew medication & repeat A1c. Albuminuria in the setting of type 2 diabetes mellitus, previous Albumin/Creatinine reation (06/2024) noted 79 (H). Lisinopril 2.5 mg once daily. Objective/Exam Objective Laboratory: General Appearance: Alert and Orientated x3, well-nourished male who is sitting on exam room. No vesicle noted on penis. No discharge noted. Thorax/Lungs: Symmetrical with good expansion. Chest and back non-tender. Lungs resonant to percussion. Breath sounds vesicular without crackles, wheezes, or rhonchi Cardiovascular/Peripheral Vascular: No jugular venous distention noted. S1 and S2 heart sounds regular, no murmurs or extra heart sounds auscultated. No peripheral edema noted. Abdomen: Bowel sounds are active. No tenderness to deep or light palpation. Assessment & Plan Diagnosis / Problem List (1) Diabetes mellitus type 2, noninsulin dependent: Status: Acute Assessment & Plan: Patient has a past medical history of diabetes mellitus type 2, non insulin dependent on Metformin 1000 mg BID. Previous A1c )06/2024) 7.4%, patient denied hypoglycemic episodes and denied glucose levels greater than >200. Patient counseled on continue to check morning glucose levels at least 1 a day but goal of four times per day. Metformin 1000 mg BID to Metformin ER 1000 mg BID. Plan: Repeat A1c Metformin ER 1000 mg BID (2) Microalbuminuria due to type 2 diabetes mellitus: Status: Acute Assessment & Plan: Patient has a past medical history of diabetes mellitus, type 2 with previous Albumin Creatinine Ratio of 79. Lisinopril 2.5 mg ordered. Plan: Lisinopril 2.5 mg once daily (3) Abdominal bloating: Status: Acute Assessment & Plan: Patient concern for abdominal bloating and early satiety shortly after eating. Denied history of cancer, denied weight loss, denied history of H.pylori, denied history of gastric ulcers. Single episode of hematochezia, denied history melena DDx: gastroporesis vs H.phylor vs malignancy vs hypothyrodism Plan: Referral for GI Simithicone PRN (4) Hyperlipidemia: Status: Acute Qualifiers: Hyperlipidemia type: mixed hyperlipidemia Qualified Code(s): E78.2 - Mixed hyperlipidemia Assessment & Plan: Past medical history of HLD. Continue Atorvastatin Plan: Atorvastatin 40 mg once daily Repeat Lipid panel (5) Penile lesion: Status: Acute Assessment & Plan: Patient complaining of vesicles near penis. NO vesicles currently present during physical exam. Patient is advices to return when vesicles are active to follow up with PCR. HSV 2 9.51; HSV 1 53.90 Plan: Repeat HSV REQUIRE follow up with PCR WITH ACTIVE LESION (6) History of hypothyroidism: Status: Acute Assessment & Plan: Patient has a past medical history of hypothyroidism with previous TSH 5.17 (09/2023). Patient was prescribed levothyroxine. Patient denied taking medication that was initially prescribed last year. Plan: Repeat TSH and Free T4 holding off levothyroxine based on results. Plan - The patient's plan was discussed with attending Dr. Aguilar. Daysi Muir MD PGY2 Internal Medicine Orders: Referrals Gastroenterology Gastroenterology E11.9 - Type 2 diabetes mellitus without complications, R14.0 - Abdominal distension (gaseous) Office Procedures OB Clinic LOC & Office Proc's Nursing/Assessment Patient Status: Established Patient OB Clinic Nursing Assessment: Medication Reconciliation, Update PMH in EMR and Vital Signs OB Clinic Coordination of Care: Complex Care and Chronic Disease 1-5, Consent,records obtained, informed consent, Education Simp Pt/Fam, Lab and Imaging orders, Results/Orders obtained and Staff clarify orders Established Patient Charge Established Patient Point Assignment: 105 Established Patient Point Charge: EP Level 3 (80-115)
== END 2025-02-21 16:45 | disposition home or self-care (01) ==
PROVIDERS: Supervising Provider Internal Medicine
DX: R14.0 Abdominal distension (gaseous) (principal); R80.9 Proteinuria, unspecified; E11.9 Type 2 diabetes mellitus without complications; Z79.84 Long term (current) use of oral hypoglycemic drugs; E78.5 Hyperlipidemia, unspecified; N48.89 Other specified disorders of penis; E03.9 Hypothyroidism, unspecified
CPT/HCPCS: 99213; G0463